=== PATIENT | male | born 1995 | race Caucasian/White ===

== ENCOUNTER 2019-08-16 14:45 | Inpatient (IN) | payer MEDICAID ==
[~2019-08-16] VITALS: Ht 177.8 cm; Wt 54.6 kg
[2019-08-16 15:27] LABS: BASOPHILS % (AUTO) 0.5 % (0.0-2.0); HEMATOCRIT 49.4 % (41-53); HEMOGLOBIN 16.6 g/dL (13.5-17.5); LYMPHOCYTES # (AUTO) 1.7 K/uL (1.0-4.8); LYMPHOCYTES % (AUTO) 16.6 % (22.0-44.0); MEAN CORPUSCULAR HEMOGLOBIN 30.6 pg (26.0-34.0); MEAN CORPUSCULAR HGB CONC 33.7 G/dL (31.0-37.0); MEAN CORPUSCULAR VOLUME 91 fL (80-100); MONOCYTES # (AUTO) 0.9 K/uL (0.1-1.0); NEUTROPHILS # (AUTO) 7.1 K/uL (1.8-7.7); NEUTROPHILS % (AUTO) 70.9 % (40.0-70.0); PLATELET COUNT (AUTO) 333 K/uL (150-450); RED BLOOD CELL COUNT(AUTO) 5.43 MIL/uL (4.50-5.90); RED CELL DISTRIBUTION WIDTH 12.8 % (11.5-14.5)
[2019-08-16 15:36] LABS: ANION GAP 7 mmol/L (8-16); CALCIUM, TOTAL 9.3 mg/dL (8.8-10.5); CARBON DIOXIDE 31 mmol/L (22-29); CHLORIDE 100 mmol/L (98-107); CREATININE 0.98 mg/dL (0.60-1.30); GLOMERULAR FILTR. RATE CALC > 60 mL/min (>60); GLUCOSE,RANDOM 98 mg/dL (70-110); POTASSIUM 3.8 mmol/L (3.5-5.1); SODIUM SERUM 138 mmol/L (136-145); UREA NITROGEN, BLOOD 9 mg/dL (7-18)
[2019-08-16 15:38] LABS: AMPHET/METH SCREEN,URINE NEGATIVE (NEGATIVE); BARBITURATE SCREEN, URINE NEGATIVE (NEGATIVE); BENZODIAZEPINES SCREEN,URINE NEGATIVE (NEGATIVE); CANNABINOID SCREEN,URINE POSITIVE (NEGATIVE); COCAINE SCREEN,URINE NEGATIVE (NEGATIVE); METHADONE SCREEN, URINE NEGATIVE (NEGATIVE); OPIATE SCREEN,URINE NEGATIVE (NEGATIVE)
[2019-08-16 15:39] LABS: PHENCYCLIDINE SCREEN,URINE NEGATIVE (NEGATIVE)
[2019-08-16 15:43] LABS: ALANINE AMINOTRANSFERASE 19 U/L (12-78); ALBUMIN 4.3 g/dL (3.4-5.0); ALKALINE PHOSPHATASE 97 U/L (46-116); ASPARTATE AMINOTRANSFERASE 14 U/L (15-37); BILIRUBIN,TOTAL 0.4 mg/dL (0.1-1.0); TOTAL PROTEIN, SERUM 7.6 g/dL (6.4-8.2)
[2019-08-16] MEDS ORDERED: HALOPERIDOL 5 MG TABLET PO PRN (15:45)
[2019-08-16 18:40] VITALS: BP 124/82
[2019-08-17 04:33] VITALS: BP 121/80
[2019-08-17 07:52] LABS: CHOL/HDL RATIO 3.6 (4.2-7.3); FREE T4 (FREE THYROXINE) 1.04 ng/dL (0.76-1.46); THYROID STIMULATING HORMONE 1.09 uIU/mL (0.36-3.74)
[2019-08-17 08:15] VITALS: BP 124/79
[2019-08-17] MEDS ORDERED: PETROLATUM,WHITE 28 GM JELLY TP PRN (08:15)
[2019-08-17] MEDS ORDERED: ONDANSETRON HCL 4 MG TABLET PO PRN (08:15)
[2019-08-17] MEDS ORDERED: DOCUSATE SODIUM 100 MG CAPSULE PO PRN (08:15)
[2019-08-17] MEDS ORDERED: OMEPRAZOLE 20 MG CAPSULE PO PRN (08:15)
[2019-08-17] MEDS ORDERED: ACETAMINOPHEN 325 MG TABLET PO PRN (08:15)
[2019-08-17] MEDS ORDERED: MAG HYDROX/AL HYDROX/SIMETH ES 30 ML SUSPENSION UDCUP PO PRN (08:15)
[2019-08-17] MEDS ORDERED: IBUPROFEN 600 MG TABLET PO PRN (08:15)
[2019-08-17] MEDS ORDERED: LOPERAMIDE HCL 2 MG CAPSULE PO PRN (08:15)
[2019-08-17] MEDS ORDERED: ALBUTEROL SULFATE HFA 90 MCG/PUFF 8 GM INHALER IH PRN (08:15)
[2019-08-17] MEDS ORDERED: BACITRACIN 28.4 GM OINTMENT TP PRN (08:15)
[2019-08-17] MEDS ORDERED: CloNIDine HCL 0.1 MG TABLET PO PRN (08:15)
[2019-08-17] MEDS ORDERED: MAGNESIUM HYDROXIDE SUSPENSION 30 ML UDCUP PO PRN (08:15)
[2019-08-17] MEDS: BENZOCAINE/MENTHOL LOZENGE MM PRN ×2 (09:58→18:25)
[2019-08-17] MEDS: BuPROPion HCL XL 150 MG ER TABLET PO SCH (10:51)
[2019-08-17] MEDS: LORazepam 2 MG TABLET PO PRN (12:39)
[2019-08-17 16:13] VITALS: BP 128/77
[2019-08-17] MEDS: ZOLPIDEM TARTRATE 10 MG TABLET PO PRN (21:16)
[2019-08-18 06:13] VITALS: BP 116/85
[2019-08-18] MEDS: BENZOCAINE/MENTHOL LOZENGE MM PRN ×2 (06:18→13:46)
[2019-08-18 08:00] VITALS: BP 127/76
[2019-08-18] MEDS: BuPROPion HCL XL 150 MG ER TABLET PO SCH (08:09)
[2019-08-18] MEDS: NICOTINE 7 MG/24 HOUR PATCH TD SCH (08:11)
[2019-08-18] MEDS: LORazepam 2 MG TABLET PO PRN (13:46)
[2019-08-18 16:02] VITALS: BP 131/70
[2019-08-18] MEDS: ZOLPIDEM TARTRATE 10 MG TABLET PO PRN (20:25)
[2019-08-19] MEDS: BENZOCAINE/MENTHOL LOZENGE MM PRN ×2 (04:27→08:39)
[2019-08-19 05:22] VITALS: BP 129/88
[2019-08-19 08:12] VITALS: BP 129/72
[2019-08-19] MEDS: BuPROPion HCL XL 150 MG ER TABLET PO SCH (08:12)
[2019-08-19] MEDS: NICOTINE 7 MG/24 HOUR PATCH TD SCH (08:12)
[2019-08-19] MEDS ORDERED: BUPR-47 PO (13:39)
[2019-08-19] MEDS ORDERED: NALT50TA PO (13:39)
[2019-08-19 16:06] VITALS: BP 123/80
== END 2019-08-19 17:20 | disposition home or self-care (01) | DRG 751 ==
LOC: EMS 14:48 → B3A 16:09
PROVIDERS: ADMIT Psychiatry & Neurology Psychiatry; ATTEND Psychiatry & Neurology Psychiatry
DX: F32.2 Major depressive disorder, single episode, severe without psychotic features (principal); Z91.19 Patient's noncompliance with other medical treatment and regimen; F12.90 Cannabis use, unspecified, uncomplicated; K59.00 Constipation, unspecified; F41.9 Anxiety disorder, unspecified; G47.00 Insomnia, unspecified
CPT/HCPCS: 84439; 84443; G0480